=== PATIENT | male | born 1980 | race Caucasian/White ===

== ENCOUNTER 2018-05-27 07:39 | Emergency (ER) | payer SELFPAY ==
[2018-05-27] MEDS ORDERED: HYDR-653 PO (07:50)
[2018-05-27] MEDS ORDERED: IBUPROFEN 600 MG TAB PO ONE (08:00)
--- NOTE | 2018-05-27 08:11 | ER Report ---
History and Physical Time Seen By MD: 07:55 Hx. of Stated Complaint: Pt. injured his left ankle getting out of the back of his truck, jumped off the tailgate. Was seen at a hospital in [place], had xrays, but nothing was fractured. Came in today because it is still painful and swollen. HPI/ROS CHIEF COMPLAINT: Ankle injury HISTORY OF PRESENT ILLNESS: 37-year-old male states he was jumping off the tailgate of a truck on Monday when he landed directly on his feet. Truck was not moving and tailgate is approx 4 ft off ground. He landed on concrete/asphalt fabiola face. He developed immediate pain throughout his left ankle and heel, which dropped him to his knees. He denies other injuries. He denies striking his head or losing consciousness. He was seen at urgent care where x-rays were taken and he was told he did not have a fracture. He was given an Kranthi wrap and crutches. He then drove here to [place]. Other than during the drive from [place] to [place], patient has tried to elevate leg. He has not iced or used NSAIDs. He was given Turon and has taken this but states he does not like the way it makes him feel and does not help his pain. He presents here because he is having continued pain, worsening swelling and bruising, and wants to be better so he can go to work tomorrow. He denies chest pain, trouble breathing, fevers. He denies pain behind the knee or proximal leg pain. He denies calf pain. REVIEW OF SYSTEMS: Respiratory: No cough, no dyspnea. Cardiovascular: No chest pain, no palpitations. Gastrointestinal: No vomiting, no abdominal pain. Musculoskeletal: No back pain. Remainder of the 14 system rev: Yes Allergies: Coded Allergies: No Known Drug Allergies (Unverified , 05/27/18) Home Meds Reported Medications Hydrocodone Bit/Acetaminophen (NORCO 5-325 TABLET) 1 Each Tablet, 1 EACH PO Q4- 6H PRN for PAIN, TAB 05/27/18 Reviewed Nurses Notes: Yes Constitutional Vital Sign - Last 24 Hours 05/27/18 05/27/18 05/27/18 05/27/18 07:39 07:43 08:09 08:20 Temp 97.5 Pulse ??? 115 ??? Resp 16 B/P (MAP) 138/90 141/83 (102) Pulse Ox 91 O2 Delivery Nasal Cannula 05/27/18 05/27/18 05/27/18 05/27/18 08:32 08:39 09:09 09:15 Pulse 118 109 Resp 32 29 B/P (MAP) 129/83 (98) 104/81 (89) Pulse Ox 92 95 O2 Delivery Nasal Cannula O2 Flow Rate 2 Physical Exam General Appearance: The patient is alert, has no immediate need for airway protection and no current signs of toxicity. Eyes: Pupils equal and round no injection. Respiratory: Chest is non tender, lungs are clear to auscultation. Cardiac: borderline tachycardia, no murmurs Gastrointestinal: Musculoskeletal: no spine ttp throughout LLE; edema throughout ankle with medial blistering without hemorrhage, fluctuance. TTP bilaeral malleoli and heel. able to move toes; no increase in pain with moving toes, lt touch sensation intact no paresthesias). Skin: edema throughout foot, ecchymosis bilateral ankle and heel, medial b listering, < 1cm, non hemorrhageic. DIFFERENTIAL DIAGNOSIS: After history and physical exam differential diagnosis was considered for calcaneus fx, midfoot, ankle fx, ligament rupture, dvt, infection, or other complication of injury Medical Decision Making EKG/Imaging Imaging X-ray: Ankle, calcaneus was obtained. I viewed the images myself on the PACS system. My interpretation of the images is: Comminuted calcaneus fracture with Boehler's angle of 11. The radiologist interpretation had no clinically significant variation from this interpretation. ED Course/Re-evaluation ED Course 37-year-old male presents with continued ankle pain and swelling after injury Monday. Findings are concerning for, and x-rays confirm calcaneus fracture. He Boehler's angle is decreased to about 11 and fracture is comminuted so orthopedics consult and for surgical planning. Patient will follow-up with Dr. Perez who will call however have also given his number as well. Patient states that he is working here but will be here for months and can follow-up here as well. He does not have signs of compartment syndrome at this point, however given his amount of swelling and findings I have warned him against precautions for this. Patient is aware he needs to elevate and remain nonweightbearing at all times. Splint adequately placed; pt able to move toes afterward Re-evaluation no change; no sgs compartement syndrome on re-eval Decision to Disposition Date: May 27, 2018 Decision to Disposition Time: 09:15 Depart Departure Latest Vital Signs Vital Signs Date Time Temp Pulse Resp B/P (MAP) Pulse Ox O2 Delivery O2 Flow Rate FiO2 05/27/18 09:15 104/81 (89) 05/27/18 09:09 109 29 95 05/27/18 08:39 Nasal Cannula 2 05/27/18 07:43 97.5 Impression: Primary Impression: Calcaneus fracture, left Condition: Improved Disposition: HOME OR SELF-CARE Referrals: MILKA PEREZ MD Departure Forms: ER Transition Record, Medications Reconciliation, Off Work/School Form, School or Work Release?: Work Number of days to be released: 5 Patient Portal Information Patient Instructions: Calcaneal Fracture (ED) Additional Instructions: As we discussed, do not bear weight at all. As much as possible, keep leg elevated over heart, which means in bed elevated on at least 3 pillows, on couch elevated over the back of the couch. You may take Tylenol for pain. Please return if you have uncontrolled pain, new numbness, pain with moving toes, or any concerns. If Dr. Perez's office has not called to by Monday, you may call to arrange follow-up and evaluation. Problem Qualifiers Primary Impression: Calcaneus fracture, left Encounter type: initial encounter Calcaneus location: body Fracture type: closed Fracture alignment: displaced Qualified Codes: S92.012A - Displaced fracture of body of left calcaneus, initial encounter for closed fracture SVEN GARCIA MD May 27, 2018 08:11
--- NOTE | 2018-05-27 08:35 | RADIOLOGY IMAGING REPORT ---
[place] [facility] [place] NAME: Minh Berman : 1980 MR: [id number] V: [id number] EXAM DATE: ORDERING PHYSICIAN: SVEN GARCIA TECHNOLOGIST: Location: [facility] Patient: Minh Berman : 1980 Visit/Account:[id number] Date of Sevice: 05/27/2018 EXAMINATION: Left ankle series, 3 views Left calcaneus, 2 views 05/27/2018 8:00 AM HISTORY: fall Monday, continued pain and swelling COMPARISON: None FINDINGS: Soft tissue swelling around the ankle and hindfoot. Distal tibia and fibula are intact. Ank le mortise is well preserved. Comminuted fracture of the calcaneus with flattening of Boehler's angle . No other acute tarsal bony finding. IMPRESSION: Comminuted fracture of the left calcaneus Report Dictated By: Tacos Reich MD at 05/27/2018 8:28 AM Report E-Signed By: Tacos Reich MD at 05/27/2018 8:31 AM WSN:[id number]
--- NOTE | 2018-05-27 08:35 | RADIOLOGY IMAGING REPORT ---
FACILITY: [facility] PATIENT NAME: Minh Berman : 1980 MR: [id number] V: [id number] EXAM DATE: ORDERING PHYSICIAN: SVEN GARCIA TECHNOLOGIST: [place] [facility] [place]h B[place] : 1980 Visit/Account:[id number] Date of Sevice: 05/27/2018 EXAMINATION: Left ankle series, 3 views Left calcaneus, 2 views 05/27/2018 8:00 AM HISTORY: fall Monday, continued pain and swelling COMPARISON: None FINDINGS: Soft tissue swelling around the ankle and hindfoot. Distal tibia and fibula are intact. Ank le mortise is well preserved. Comminuted fracture of the calcaneus with flattening of Boehler's angle . No other acute tarsal bony finding. IMPRESSION: Comminuted fracture of the left calcaneus Report Dictated By: Tacos Reich MD at 05/27/2018 8:28 AM Report E-Signed By: Tacos eRich MD at 05/27/2018 8:31 AM WSN:[id number]
[2018-05-27 09:15] VITALS: BP 104/81
== END 2018-05-27 09:43 | disposition home or self-care (01) ==
LOC: ER 07:53
DX: M79.89 Other specified soft tissue disorders (principal); S92.012A Displaced fracture of body of left calcaneus, initial encounter for closed fracture; Y93.39 Activity, other involving climbing, rappelling and jumping off
CPT/HCPCS: 99284

== ENCOUNTER 2018-05-29 14:37 | Emergency (ER) | payer SELFPAY ==
[~2018-05-29 14:37] MED LIST changes: -HYDR-4225 PO
--- NOTE | 2018-05-29 14:41 | ER Report ---
History and Physical Time Seen By MD: 14:41 HPI/ROS CHIEF COMPLAINT: Chest pain HISTORY OF PRESENT ILLNESS: 37-year-old male patient presents to emergency room with complaint of chest pain. Patient states that he recently broke his calcaneus. The patient states that he was placed in a walking boot 2 days ago. He states the last night he was the hotel and started having some chest pain. He states the pain was worse with deep breaths. Patient states he also is having some shortness of breath with activity. Getting up and going into the bathroom move around caused worsening chest pain. Patient states that the pain has persisted through today. He states that he had worsening pain while at the orthopedics office and was referred to the emergency room by EMS. Patient did rate his pain a 9 out of 10. He denies any fevers, chills, nausea, vomiting or diarrhea. REVIEW OF SYSTEMS: Respiratory: As noted above. Cardiovascular: As noted above Gastrointestinal: No vomiting, no abdominal pain. Musculoskeletal: As noted above Allergies: Coded Allergies: No Known Drug Allergies (Unverified , 05/27/18) Home Meds Active Scripts Hydroxyzine Hcl (HYDROXYZINE HCL) 25 Mg Tablet, 25 MG PO Q6H PRN for ANXIETY, #30 TAB Prov:ROSALINA MCKEONSSDeborah ALVARENGA 05/29/18 Reported Medications Hydrocodone Bit/Acetaminophen (NORCO 5-325 TABLET) 1 Each Tablet, 1 EACH PO Q4- 6H PRN for PAIN, TAB 05/27/18 Past Medical/Surgical History Patient has a past medical history of ankle fractures 7, alcohol use. Patient denies any surgical history. Reviewed Nurses Notes: Yes Constitutional Vital Sign - Last 24 Hours 05/29/18 05/29/18 05/29/18 05/29/18 14:37 14:38 14:38 14:45 Temp 98.7 Pulse ??? 85 Resp 18 B/P (MAP) 120/87 120/87 (98) 111/84 (93) Pulse Ox 95 O2 Delivery Room Air 05/29/18 05/29/18 05/29/18 05/29/18 14:52 15:00 15:07 15:15 Pulse 86 ??? Resp 34 B/P (MAP) 113/73 (86) 123/93 (103) Pulse Ox 95 05/29/18 05/29/18 05/29/1819 15:22 15:30 15:37 15:42 Pulse 87 ??? 89 Resp 12 46 B/P (MAP) 122/91 (101) Pulse Ox 89 94 05/29/18 05/29/18 05/29/18 05/29/18 15:45 15:57 16:00 16:12 Pulse 84 88 Resp 35 11 B/P (MAP) 114/63 (80) 102/64 (77) Pulse Ox 92 92 05/29/18 05/29/18 05/29/18 05/29/18 16:15 16:27 16:30 16:42 Pulse 88 ??? Resp 17 25 B/P (MAP) 105/71 (82) 107/62 (77) Pulse Ox 91 90 05/29/18 16:45 B/P (MAP) ???/??? (1665) Physical Exam General Appearance: The patient is alert, has no immediate need for airway protection and no current signs of toxicity. Respiratory: Chest is non tender, lungs are clear to auscultation. Cardiac: regular rate and rhythm Gastrointestinal: Abdomen is soft and non tender, no masses, bowel sounds normal. Musculoskeletal: Neck: Neck is supple and non tender. Extremities have full range of motion and are non tender. Left lower extremity is placed in a walking boot. Skin: No rashes or lesions. DIFFERENTIAL DIAGNOSIS: After history and physical exam differential diagnosis was considered for chest pain including but not limited to myocardial ischemia, pericarditis pulmonary embolus, chest wall pain, pleural inflammation and pulmonary infectious causes. Medical Decision Making Data Points Result Diagram: 05/29/18 1439 05/29/18 1439 Laboratory Hematology Test 05/29/18 14:39 Red Blood Count 3.74 M/uL (4.00-5.60) Mean Corpuscular Volume 99.2 fL (80.0-96.0) Mean Corpuscular Hemoglobin 33.3 pg (26.0-33.0) Mean Corpuscular Hemoglobin Concent 33.6 g/dL (32.0-36.0) Red Cell Distribution Width 12.9 % (11.5-14.5) Mean Platelet Volume 7.8 fL (7.2-11.1) Neutrophils (%) (Auto) 65.3 % (39.4-72.5) Lymphocytes (%) (Auto) 21.5 % (17.6-49.6) Monocytes (%) (Auto) 10.6 % (4.1-12.4) Eosinophils (%) (Auto) 2.1 % (0.4-6.7) Basophils (%) (Auto) 0.5 % (0.3-1.4) Nucleated RBC Relative Count (auto) 0.0 /100WBC Neutrophils # (Auto) 5.9 K/uL (2.0-7.4) Lymphocytes # (Auto) 2.0 K/uL (1.3-3.6) Monocytes # (Auto) 1.0 K/uL (0.3-1.0) Eosinophils # (Auto) 0.2 K/uL (0.0-0.5) Basophils # (Auto) 0.0 K/uL (0.0-0.1) Nucleated RBC Absolute Count (auto) 0.00 K/uL Sodium Level 136 mmol/L (137-145) Potassium Level 4.1 mmol/L (3.5-5.0) Chloride Level 102 mmol/L (98-107) Carbon Dioxide Level 29 mmol/L (22-30) Blood Urea Nitrogen 9 mg/dl (9-21) Creatinine 0.90 mg/dl (0.66-1.25) Glomerular Filtration Rate Calc > 60.0 Random Glucose 101 mg/dl (75-110) Calcium Level 9.4 mg/dl (8.4-10.2) Total Bilirubin 0.4 mg/dl (0.2-1.3) Aspartate Amino Transf (AST/SGOT) 34 U/L (0-35) Alanine Aminotransferase (ALT/SGPT) 24 U/L (0-56) Alkaline Phosphatase 91 U/L (0-126) Troponin I < 0.012 ng/ml Total Protein 7.4 g/dl (6.3-8.2) Albumin 4.3 g/dl (3.5-5.0) Chemistry Test 05/29/18 14:39 White Blood Count 9.1 k/uL (4.5-11.0) Red Blood Count 3.74 M/uL (4.00-5.60) Hemoglobin 12.5 g/dL (14.0-18.0) Hematocrit 37.1 % (42.0-52.0) Mean Corpuscular Volume 99.2 fL (80.0-96.0) Mean Corpuscular Hemoglobin 33.3 pg (26.0-33.0) Mean Corpuscular Hemoglobin Concent 33.6 g/dL (32.0-36.0) Red Cell Distribution Width 12.9 % (11.5-14.5) Platelet Count 297 K/uL (150-450) Mean Platelet Volume 7.8 fL (7.2-11.1) Neutrophils (%) (Auto) 65.3 % (39.4-72.5) Lymphocytes (%) (Auto) 21.5 % (17.6-49.6) Monocytes (%) (Auto) 10.6 % (4.1-12.4) Eosinophils (%) (Auto) 2.1 % (0.4-6.7) Basophils (%) (Auto) 0.5 % (0.3-1.4) Nucleated RBC Relative Count (auto) 0.0 /100WBC Neutrophils # (Auto) 5.9 K/uL (2.0-7.4) Lymphocytes # (Auto) 2.0 K/uL (1.3-3.6) Monocytes # (Auto) 1.0 K/uL (0.3-1.0) Eosinophils # (Auto) 0.2 K/uL (0.0-0.5) Basophils # (Auto) 0.0 K/uL (0.0-0.1) Nucleated RBC Absolute Count (auto) 0.00 K/uL Glomerular Filtration Rate Calc > 60.0 Calcium Level 9.4 mg/dl (8.4-10.2) Total Bilirubin 0.4 mg/dl (0.2-1.3) Aspartate Amino Transf (AST/SGOT) 34 U/L (0-35) Alanine Aminotransferase (ALT/SGPT) 24 U/L (0-56) Alkaline Phosphatase 91 U/L (0-126) Troponin I < 0.012 ng/ml Total Protein 7.4 g/dl (6.3-8.2) Albumin 4.3 g/dl (3.5-5.0) EKG/Imaging EKG Interpretation 12 lead EKG: Rhythm: normal sinus rhythm [place]: normal QRS: normal ST segments: normal Imaging CT angiogram chest with contrast Indication: Chest pain shortness breath. Recent broken ankle. Comparison: None available. Technique: Axial CT images are obtained through the chest after administration of 75 mL Isovue 370 IV contrast. Reformatted coronal and sagittal images were reviewed as well as coronal MIP images. One of the following dose optimization techniques was utilized in the performance of this exam: automated exposure control; adjustment of the mA and/or kV according to the patient's size; or use of an iterative reconstruction technique. Specific details can be referenced in the facility's radiology CT exam operational policy. FINDINGS: No evidence of filling defect within the pulmonary vasculature to suggest pulmonary embolus. The heart is normal size without pericardial effusion. Aorta shows no aneurysm or dissection. Mediastinum and hilar regions show no enlarged lymph nodes with a few small lymph nodes. Couple calcified lymph nodes consistent prior granulomatous disease. No abnormal density seen mediastinum. Mild dependent atelectasis seen in the lungs. No consolidation, pleural effusion or pneumothorax. Mild scarring seen left lobe. The right middle lobe does show two anterior lateral calcified granulomas. There is a noncalcified nodule seen on image #46 of series 5 measuring 7 x 4 mm. No other discrete nodules. No focal interstitial opacities. Airways are clear. Bony structures show no acute fractures or aggressive bony lesions. Chest wall shows no enlarged axillary lymph nodes or masses. Limited views of the upper abdomen are unremarkable. IMPRESSION: 1. No evidence of pulmonary embolus. 2. No acute cardiothoracic abnormality 3. Prior granulomatous disease. 4. Noncalcified nodule seen in the right middle lobe measuring 7 mm. This could represent a noncalcified granuloma. However is nonspecific. Suggest follow-up per Fleischner guidelines described below. FLEISCHNER SOCIETY FOLLOW-UP GUIDELINES FOR NEWLY DETECTED INCIDENTAL NODULES IN PERSONS 35 YEARS OF AGE OR OLDER. *These recommendations do NOT apply to lung cancer screening, patients with immunosuppression or patients with a known primary malignancy. SOLITARY SOLID NODULE If nodule size is < 6 mm: * Low risk patient ? No routine follow-up. * High risk patient ? Optional CT at 12 months. If nodule size is 6-8 mm: * Low risk patient ? CT at 6-12 months, then consider CT at 18-24 months if no change. * High risk patient ? CT at 6-12 months, then CT at 18-24 months if no change. If nodule size is > 8 mm: * Low risk patient ? Consider CT at 3, 9 and 24 months (if no change), PET/CT, tissue sampling or a combination thereof. * High risk patient ? Consider CT at 3, 9 and 24 months (if no change), PET/CT, tissue sampling, or a combination thereof. LOW RISK PATIENT: Minimal or absent history of tobacco use and of other known risk factors. HIGH RISK PATIENT: Tobacco use, family history of lung cancer, upper pulmonary lobe location of nodule, presence of emphysema, pulmonary fibrosis, older age. Harshal H, Charmaine DP, Anna WHITE, et al. Guidelines for Management of Incidental Pulmonary Nodules Detected on CT Images: From the Fleischner Society 2017. Radiology. [facility] Report Dictated By: Asher Post at 05/29/2018 3:42 PM Report E-Signed By: Asher Post at 05/29/2018 3:56 PM ED Course/Re-evaluation ED Course Patient was admitted to exam room, history and physical were obtained. Differential diagnoses were considered. On examination lungs are clear, heart is regular, abdomen soft nontender. Patient had no obvious tenderness to palpation of the chest. With the recent immobilization of the left foot is concerned about possible DVT. I went ahead and ordered a CT pulmonary angiogram, CBC, CMP, troponin, EKG. Lab results were unremarkable. Patient had a negative troponin. CT pulmonary angiogram showed no acute findings, patient did have a 7 mm nodule noted. I discussed this with the patient. We'll encourage him to follow-up with his primary care provider to have the nodule reevaluated in 6-12 months. Patient will be discharged home. Patient will be given a limited supply of hydroxyzine to help with anxiety. Patient verbalized understanding and agreement with plan. Decision to Disposition Date: May 29, 2018 Decision to Disposition Time: 16:35 Depart Departure Latest Vital Signs Vital Signs Date Time Temp Pulse Resp B/P (MAP) Pulse Ox O2 Delivery O2 Flow Rate FiO2 05/29/18 16:45 ???/??? (1665) 05/29/18 16:42 ??? 90 05/29/18 14:38 98.7 Room Air Impression: Primary Impression: Chest pain Additional Impression: Anxiety about health Condition: Improved Disposition: HOME OR SELF-CARE New Scripts Hydroxyzine Hcl (HYDROXYZINE HCL) 25 Mg Tablet 25 MG PO Q6H PRN for ANXIETY, #30 TAB Prov: OJ MCKEON 05/29/18 Patient Instructions: Chest Pain (ED) Additional Instructions: Increase fluid intake. Get plenty of rest. Limit activity by pain. Take your medication as directed. Follow up with your primary care provider in the next week. There was a nodule noted on the CT scan, which needs to be followed up with in 6-12 months. Problem Qualifiers Primary Impression: Chest pain Chest pain type: other chest pain Qualified Codes: R07.89 - Other chest pain OJ MCKEON May 29, 2018 14:41
[2018-05-29] MEDS ORDERED: ASPIRIN 81 MG CHEW PO ONE (14:50)
[2018-05-29 14:54] LABS: PLATELET COUNT, AUTOMATED 297 K/uL (150-450)
--- NOTE | 2018-05-29 15:06 | EKG ---
[place] [facility] [place] NAME: MARIJA DEL ANGEL : [id number] MR: [id number] V: [id number] EXAM DATE: ORDERING PHYSICIAN: OJ MCKEON TECHNOLOGIST: Test Reason : Chest pain Blood Pressure : / mmHG Vent. Rate : 084 BPM Atrial Rate : 084 BPM P-R Int : 160 ms QRS Dur : 086 ms QT Int : 366 ms P-R-T Axes : 036 038 043 degrees QTc Int : 432 ms Normal sinus rhythm Normal ECG No previous ECGs available Confirmed by Chris Felipe ([id number]) on 05/30/2018 12:07:10 AM Referred By: Confirmed By:Chris Richmond
[2018-05-29] MEDS ORDERED: NS(*) 0.9% 50 ML BAG 50 ML ONE (15:11)
[2018-05-29] MEDS ORDERED: IOPAMIDOL 76% 100 ML INFUS BTL 100 ML ONE (15:11)
[2018-05-29] MEDS ORDERED: APAP/HYDROCODONE 325/5 TAB PO ONE (15:20)
--- NOTE | 2018-05-29 16:25 | RADIOLOGY IMAGING REPORT ---
FACILITY: [facility] [place] PATIENT NAME: Minh Berman : 1980 MR: [id number] V: [id number] EXAM DATE: ORDERING PHYSICIAN: OJ MCKEON TECHNOLOGIST: Location: [facility] Patient: Minh Berman : 1980 Visit/Account:[id number] Date of Sevice: 05/29/2018 CT angiogram chest with contrast Indication: Chest pain shortness breath. Recent broken ankle. Comparison: None available. Technique: Axial CT images are obtained through the chest after administration of 75 mL Isovue 370 IV contrast. Reformatted coronal and sagittal images were reviewed as well as coronal MIP images. One of the following dose optimization techniques was utilized in the performance of this exam: auto mated exposure control; adjustment of the mA and/or kV according to the patient's size; or use of an iterative reconstruction technique. Specific details can be referenced in the facility's radiology C T exam operational policy. FINDINGS: No evidence of filling defect within the pulmonary vasculature to suggest pulmonary embolus. The heart is normal size without pericardial effusion. Aorta shows no aneurysm or dissection. Media stinum and hilar regions show no enlarged lymph nodes with a few small lymph nodes. Couple calcified lymph nodes consistent prior granulomatous disease. No abnormal density seen mediastinum. Mild dependent atelectasis seen in the lungs. No consolidation, pleural effusion or pneumothorax. M ild scarring seen left lobe. The right middle lobe does show two anterior lateral calcified granulom as. There is a noncalcified nodule seen on image #46 of series 5 measuring 7 x 4 mm. No other discr ete nodules. No focal interstitial opacities. Airways are clear. Bony structures show no acute fractures or aggressive bony lesions. Chest wall shows no enlarged axi llary lymph nodes or masses. Limited views of the upper abdomen are unremarkable. IMPRESSION: 1. No evidence of pulmonary embolus. 2. No acute cardiothoracic abnormality 3. Prior granulomatous disease. 4. Noncalcified nodule seen in the right middle lobe measuring 7 mm. This could represent a noncalc ified granuloma. However is nonspecific. Suggest follow-up per Fleischner guidelines maurisio stuart FLEISCHNER SOCIETY FOLLOW-UP GUIDELINES FOR NEWLY DETECTED INCIDENTAL NODULES IN PERSONS 35 YEARS OF AGE OR OLDER. *These recommendations do NOT apply to lung cancer screening, patients with immunosuppression or kate ents with a known primary malignancy. SOLITARY SOLID NODULE If nodule size is < 6 mm: * Low risk patient ? No routine follow-up. * High risk patient ? Optional CT at 12 months. If nodule size is 6-8 mm: * Low risk patient ? CT at 6-12 months, then consider CT at 18-24 months if no change. * High risk patient ? CT at 6-12 months, then CT at 18-24 months if no change. If nodule size is > 8 mm: * Low risk patient ? Consider CT at 3, 9 and 24 months (if no change), PET/CT, tissue sampling or a combination thereof. * High risk patient ? Consider CT at 3, 9 and 24 months (if no change), PET/CT, tissue sampling, or a combination thereof. LOW RISK PATIENT: Minimal or absent history of tobacco use and of other known risk factors. HIGH RISK PATIENT: Tobacco use, family history of lung cancer, upper pulmonary lobe location of nodul e, presence of emphysema, pulmonary fibrosis, older age. Harshal H, Charmaine DP, Anna WHITE, et al. Guidelines for Management of Incidental Pulmonary Nodules Dete cted on CT Images: From the Fleischner Society 2017. Radiology. [facility] Report Dictated By: Asher Post at 05/29/2018 3:42 PM Report E-Signed By: Asher Post at 05/29/2018 3:56 PM [id number]
[2018-05-29] MEDS ORDERED: HYDR-4225 PO (16:34)
== END 2018-05-29 16:50 | disposition home or self-care (01) ==
LOC: ER 14:43
DX: R07.89 Other chest pain (principal); F41.9 Anxiety disorder, unspecified
CPT/HCPCS: 71275; 84484; 85025; 93005; 99284; J7050; Q9967; 82040; 82247; 82310; 82374; 82435; 82565; 82947; 84075; 84132; 84155; 84295; 84450; 84460; 84520

== ENCOUNTER → 2018-05-29 | Outpatient (CLI) | payer SELFPAY ==
[~2018-05-29] MED LIST: HYDR-4225 PO; HYDR-653 PO
== END ==
LOC: AMB 14:20
PROVIDERS: ATTEND Nurse Practitioner
DX: R07.89 Other chest pain (principal); R06.00 Dyspnea, unspecified
CPT/HCPCS: A0425; A0427